=== PATIENT | female | born 1965 ===

== ENCOUNTER 2018-04-09 17:56 | Emergency (ER) | payer OTHER ==
[2018-04-09 18:06] VITALS: BP 124/82; PULSE 83; RESP 18; TEMP 97.4; O2SAT 97
--- NOTE | 2018-04-09 18:49 | RAD ---
Date of service: 04/09/2018 PROCEDURE: Left Thumb radiographs. HISTORY: injury COMPARISON: None. TECHNIQUE: AP radiograph of the left hand, as well as spot oblique and lateral images of thumb were obtained. FINDINGS: LEFT THUMB: Normal left thumb, without acute fracture or focal lesion. Remainder of the left hand (as seen on the AP view) grossly unremarkable. JOINTS: Normal. SOFT TISSUES: Normal. OTHER FINDINGS: None. IMPRESSION: No acute fracture or dislocation.
--- NOTE | 2018-04-09 19:11 | C.PDOC ---
History Of Present Illness 52 y/o female,w/PMhx of diabetes and HTN, presents to the ER for evaluation of left thumb laceration. Patient states that she fell at 7 pm last night and she landed on her left hand. Patient reports that she broke her left thumb nail. She notes that she placed on a band-aid.She went to her PMD today, Dr.Vinodkumar Padilla and he advised her to visit the ER. Denies having weakness, numbness, and other injuries. Chief Complaint (Nursing): Abnormal Skin Integrity History Per: Patient History/Exam Limitations: no limitations Onset/Duration Of Symptoms: Days Current Symptoms Are (Timing): Still Present Severity: Moderate Past Medical History Reviewed: Historical Data, Nursing Documentation, Vital Signs Vital Signs: Last Vital Signs Temp 97.4 F L 04/09/18 18:01 Pulse 83 04/09/18 18:01 Resp 18 04/09/18 18:01 BP 124/82 04/09/18 18:01 Pulse Ox 97 04/09/18 18:01 - Medical History PMH: HTN Surgical History: No Surg Hx Family History: States: No Known Family Hx - Social History Hx Alcohol Use: No Hx Substance Use: No - Immunization History Hx Tetanus Toxoid Vaccination: Yes (2012) Hx Influenza Vaccination: No Hx Pneumococcal Vaccination: No Review Of Systems Except As Marked, All Systems Reviewed And Found Negative. Skin: Positive for: Other (left thumb laceration) Neurological: Negative for: Weakness, Numbness Physical Exam - Physical Exam Appears: Non-toxic, No Acute Distress Skin: Warm, Dry, Other (2 cm flap along medial aspect of distal left thumb, no nail avulsion, no subungal hematoma, no erythema, (+) hemostatic, no erythema, non tender, flap is well approximated, sensation intact, FROM of thumb/five fingers) Head: Atraumatic, Normacephalic Eye(s): bilateral: Normal Inspection Extremity: Normal ROM (can oppose left thumb to all 4 fingers), No Tenderness (left thumb), Capillary Refill (< 2 seconds), No Swelling (left thumb) Pulses: Left Radial: Normal, Right Radial: Normal Neurological/Psych: Oriented x3, Normal Speech ED Course And Treatment O2 Sat by Pulse Oximetry: 97 (RA) Pulse Ox Interpretation: Normal - Other Rad X-Ray-Left Thumb X-Ray: Viewed By Me, Read By Radiologist Interpretation: Date of service: 04/09/2018. PROCEDURE: Left Thumb radio graphs. HISTORY: injury. COMPARISON: None. TECHNIQUE: AP radiograph of the left hand, as well as spot oblique and lateral images of thumb were obtained. FINDINGS: LEFT THUMB: Normal left thumb, without acute fracture or focal lesion. Remainder of the left hand (as seen on the AP view) grossly unremarkable. JOINTS: Normal. SOFT TISSUES: Normal. OTHER FINDINGS: None. IMPRESSION: No acute fracture or dislocation. Medical Decision Making Medical Decision Making: Plan: --X-Ray-Left Hand to r/o FB and fx. --D/w pt wound appears to healing well w/o signs of infection and given the fact that the laceration occurred 23 hours ago disrupting the healing process to attempt to close this would is not advised. Updates: 18:50 X-Ray-Left Hand shows no fracture, dislocation, or foreign bodies. Results d/w patient. Bacitracin and dressing has been applied by nurse. Supploies to change dressing provided to patient. Patient has been instructed to change dressing everyday and watch for signs of infection. Patient is agreeable w/POC, verbalized understanding of her d/c instructions to RTED for new, worsening or concerning symptoms and to follow up with PMD. Disposition Counseled Patient/Family Regarding: Studies Performed, Diagnosis, Need For Followup - Disposition Referrals: Ivonne Padilla MD [Staff Provider] - Disposition: HOME/ ROUTINE Disposition Time: 19:08 Condition: STABLE Instructions: Wound Care (DC) Forms: [facility] (Kosovan), General Discharge Instructions - POA Present On Arrival: None - Clinical Impression Clinical Impression: Laceration of thumb - Scribe Statement The provider has reviewed the documentation as recorded by the Marieibe Jhon Kan Provider Attestation: All [facility] were at my direction and personally dictated by me. I have reviewed the chart and agree that the record accurately reflects my personal performance of the history, physical exam, medical decision making, and the department course for this patient. I have also personally directed, reviewed, and agree with the discharge instructions and disposition.
== END 2018-04-09 19:22 | disposition home or self-care (01) ==
LOC: EDBD 17:56 → C.ER 17:56
DX: S61.012A Laceration without foreign body of left thumb without damage to nail, initial encounter (principal); W19.XXXA Unspecified fall, initial encounter; E11.9 Type 2 diabetes mellitus without complications; I10 Essential (primary) hypertension